=== PATIENT | female | born 1960 | race Caucasian/White ===

== ENCOUNTER → 2016-07-12 | Outpatient (CLI) | payer BC ==
[~2016-07-12] MED LIST: ASPI-557 PO; CALC-191 PO; CYCL30DR BOTH EYES; FOLI1TAB15 PO; METH2.5T6 PO; MULT-933 PO; OMEG1CAP79 PO
== END ==
LOC: WC.BC 08:02
DX: Z12.31 Encounter for screening mammogram for malignant neoplasm of breast (principal)
CPT/HCPCS: 77063; G0202